=== PATIENT | male | born 2000 | race Caucasian/White ===

== ENCOUNTER 2019-10-19 15:56 | Emergency (ER) | payer BC, OTHER ==
[2019-10-19 16:28] VITALS: BP 103/62; PULSE 86; TEMP 98.5; BMI 19.9
--- NOTE | 2019-10-19 17:43 | PDOC ---
History of Present Illness - General Chief Complaint: Injury Stated Complaint: FALL Time Seen by Provider: 10/19/19 16:34 - History of Present Illness Initial Comments: 10/19/19 17:35 CHIEF COMPLAINT: R knee pain HISTORY OF PRESENT ILLNESS: 19 yo M with no significant PMH presents to [facility] with pain to R knee s/p fall. Patient reports he was walking across a hill after school and slipped on mud and fell on his right leg. Patient states he is unable to extend his R knee without excruciating pain. He states he is able to wiggle his toes and denies any loss of sensation to his foot. No recent travel or sick contacts. PAST MEDICAL HISTORY: Denies past medical history FAMILY HISTORY: Denies SOCIAL HISTORY:Denies tobacco, alcohol, illicit drug use. SURGICAL HISTORY: Denies ALLERGIES: No known drug allergies REVIEW OF SYSTEMS General/Constitutional: Denies fever or chills. Denies weakness, weight change. HEENT: Denies change in vision. Denies ear pain or discharge. Denies sore throat. Cardiovascular: Denies chest pain or shortness of breath. Respiratory: Denies cough, wheezing, or hemoptysis. Gastrointestinal: Denies nausea, vomiting, diarrhea or constipation. Denies rectal bleeding. Genitourinary: Denies dysuria, frequency, or change in urination. Musculoskeletal: R knee pain. Skin and breasts: Denies rash or easy bruising. Neurologic: Denies headache, vertigo, loss of consciousness, or loss of sensation. Psychiatric: Denies depression or anxiety. PHYSICAL EXAM General Appearance: Well-appearing, appropriately dressed. No apparent distress , no intoxication. HEENT: EOMI, PERRLA, normal ENT inspection, normal voice, TMs normal, pharynx normal. No conjunctival pallor. No photophobia, scleral icterus. Neck: Supple. Trachea midline. No tenderness, rigidity, carotid bruit, stridor , lymphadenopathy, or thyromegaly. Respiratory/Chest: Lungs CTAB. No shortness of breath, chest tenderness, respiratory distress, accessory muscle use. No crackles, rales, rhonchi, stridor , wheezing, dullness Cardiovascular: RRR. S1, S2. No JVD, murmur, bradycardia, tachycardia. Vascular Pulses: Dorsalis-Pedis (R): 2+, Dorsalis-Pedis (L): 2+ Gastrointestinal/Abdominal: Normal bowel sounds. Abdomen soft, non-distended. No tenderness or rebound tenderness. No organomegaly, pulsatile mass, guarding , hernia, hepatomegaly, splenomegaly. Musculoskeletal/Extremities: Limited ROM to R knee. R leg neurovascularly intact, distal pulses 2+. Normal inspection. FROM of all extremities, normal capillary refill. Pelvis Stable. No CVA tenderness. No tenderness to extremities, pedal edema, swelling, erythema or deformity. Integumentary: Appropriate color, dry, warm. No cyanosis, erythema, jaundice or rash Neurologic: machine leather trimmer II-XII intact. Fully oriented, alert. Appropriate mood/affect. Motor strength 5/5. No appreciable EOM palsy, facial droop or sensory deficit. Past History - Past Medical History Allergies/Adverse Reactions: Allergies Allergy/AdvReac Type Severity Reaction Status Date / Time shellfish derived Allergy Verified 10/19/19 16:26 Home Medications: Ambulatory Orders Acetaminophen [Tylenol Extra Strength] 1,000 mg PO QID #60 tablet 10/19/19 Ibuprofen 800 mg PO TID #30 tablet 10/19/19 COPD: No - Immunization History Immunization Up to Date: Yes - Psycho Social/Smoking Cessation Hx Smoking History: Never smoked Information on smoking cessation initiated: No Hx Alcohol Use: No Drug/Substance Use Hx: No *Physical Exam - Vital Signs Last Vital Signs Temp Pulse Resp BP Pulse Ox 98.5 F 86 16 103/62 100 10/19/19 16:24 10/19/19 16:24 10/19/19 16:24 10/19/19 16:24 10/19/19 16:24 ED Treatment Course - RADIOLOGY Radiology Studies Ordered: Category Date Time Status KNEE 3 POS-RIGHT [RAD] Stat Radiology 10/19/19 16:34 Taken Medical Decision Making - Medical Decision Making 10/19/19 17:43 19 yo M with no significant PMH presents to [facility] with pain to R knee s/p fall. -X-ray of R knee positive for distal femur fracture. -Percocet Discussed case with ortho RAMU Sharif, who states that patient is stable to f/u outpatient. Will place knee immobilizer with crutches as recommended, non- weight bearing instructions given. Patient will f/u with ortho on Tuesday. Discharge - Discharge Information Problems reviewed: Yes Clinical Impression/Diagnosis: Fracture of distal femur Qualifiers: Encounter type: initial encounter Fracture type: closed Fracture morphology: other fracture Laterality: right Qualified Code(s): S72.491A - Other fracture of lower end of right femur, initial encounter for closed fracture Condition: Stable Disposition: HOME - Admission No - Additional Discharge Information Prescriptions: Acetaminophen [Tylenol Extra Strength] 1,000 mg PO QID #60 tablet Ibuprofen 800 mg PO TID #30 tablet - Follow up/Referral Referrals: Aguila Santana MD [Staff Physician] - - Patient Discharge Instructions Patient Printed Discharge Instructions: DI for Femoral Fracture Additional Instructions: As discussed, please do not place ANY weight on your R leg until you have been cleared by orthopedics to do so. You will need surgical repair of your fracture ; please follow up with orthopedics on TUESDAY as discussed. If you develop any loss of sensation to your right foot or increased swelling/tightness of your leg , or you develop change in color of your toes, please return to the ER IMMEDIATELY. - Post Discharge Activity
[2019-10-19] MEDS ORDERED: IBUPROFEN 600 MG TABLET (FP) PO ONE (18:22)
[2019-10-19] MEDS ORDERED: IBUPROFEN 400 MG TABLET (FP) PO ONE (18:26)
== END 2019-10-19 18:52 | disposition home or self-care (01) ==
LOC: JERFT 15:56
DX: S72.491A Other fracture of lower end of right femur, initial encounter for closed fracture (principal); W01.0XXA Fall on same level from slipping, tripping and stumbling without subsequent striking against object, initial encounter; Y93.89 Activity, other specified; Y92.89 Other specified places as the place of occurrence of the external cause; Z91.013 Allergy to seafood
CPT/HCPCS: 73562-TC-RT-FY; 99282-25

== ENCOUNTER 2023-02-20 14:17 | Emergency (ER) | payer BC ==
[2023-02-20 14:31] VITALS: BP 122/69; PULSE 72; RESP 18; TEMP 98.6; BMI 20.7
[2023-02-20] MEDS ORDERED: methylPREDNISolone NA SUCC 125 MG/2 ML VIAL IVPUSH ONE (15:38)
[2023-02-20] MEDS ORDERED: methylPREDNISolone NA SUCC 125 MG/2 ML VIAL ONE (15:57)
[2023-02-20 16:29] LABS: BASO % 0.7 % (0-2.0); EOS % 7.2 % (0-4.5); HEMATOCRIT 41.1 % (35.4-49); HEMOGLOBIN 14.1 GM/dL (11.7-16.9); LYMPH % 16.4 % (8-40); MCH 27.7 pg (25.7-33.7); MCHC 34.2 g/dl (32.0-35.9); MEAN PLT VOLUME 8.1 fl (7.5-11.1); MONO % 7.5 % (3.8-10.2); NEUT % 68.2 % (42.8-82.8); PLATELET COUNT 231 10^3/uL (134-434); RBC 5.08 M/mm3 (4.00-5.60); RDW 13.8 % (11.9-15.9); WHITE BLOOD COUNT 7.7 K/mm3 (4.0-10.0)
[2023-02-20 16:35] LABS: PH,URINE 7.5 (5.0-8.0); URINE APPEARANCE CLEAR; URINE BILIRUBIN NEGATIVE (NEGATIVE); URINE COLOR YELLOW; URINE GLUCOSE (UA) NEGATIVE (NEGATIVE); URINE KETONE NEGATIVE (NEGATIVE); URINE LEUK ESTERASE NEGATIVE (NEGATIVE); URINE NITRITE NEGATIVE (NEGATIVE); URINE PROTEIN NEGATIVE (NEGATIVE); URINE UROBILINOGEN 0.2 mg/dL (0.2-1.0)
[2023-02-20 16:49] LABS: CALCIUM 9.5 mg/dL (8.5-10.1)
[2023-02-20 16:50] LABS: ALBUMIN 4.4 g/dl (3.4-5.0); BLOOD UREA NITROGEN 11.2 mg/dL (7-18)
[2023-02-20 16:53] LABS: CREATININE 0.7 mg/dL (0.55-1.3)
[2023-02-20 16:55] LABS: BILIRUBIN,TOTAL 0.5 mg/dL (0.2-1); TOT PROT 8.2 g/dl (6.4-8.2)
[2023-02-20 17:18] LABS: SYPHILIS W/ RPR CONF NON-REACTIVE (NONREACTIVE)
[2023-02-20 17:47] LABS: HIV INTERPRETATION NEGATIVE (NEGATIVE)
== END 2023-02-20 18:56 | disposition home or self-care (01) ==
LOC: JERFT 14:17 → JER 14:17 → JERFT 18:56
PROC: 3E0333Z Introduction of Anti-inflammatory into Peripheral Vein, Percutaneous Approach (ICD-10-PCS; principal; 2023-02-20)
PROC: 3E033GC Introduction of Other Therapeutic Substance into Peripheral Vein, Percutaneous Approach (ICD-10-PCS; 2023-02-20)
DX: R21 Rash and other nonspecific skin eruption (principal)
CPT/HCPCS: 36415; 80053; 81003; 82977; 83615; 85025; 86704; 86780; 86803; 87086; 87340; 87389; 87491; 87517; 87536; 87591; 99284-25